=== PATIENT | female | born 1950 | race Hispanic/Latino ===

== ENCOUNTER → 2021-11-21 | Outpatient (CLI) | payer OTHER | END | disposition home or self-care (01) | LOC: RAH 11:41 | PROVIDERS: ATTEND Internal Medicine | DX: I70.201 Unspecified atherosclerosis of native arteries of extremities, right leg (principal); M79.604 Pain in right leg | CPT/HCPCS: 93926 ==

== ENCOUNTER → 2022-06-04 | Outpatient (CLI) | payer OTHER | END | disposition home or self-care (01) | LOC: RAH 13:15 | PROVIDERS: ATTEND Physician Assistant Surgical | DX: M79.661 Pain in right lower leg (principal); R60.0 Localized edema; M25.561 Pain in right knee; M17.11 Unilateral primary osteoarthritis, right knee; M16.11 Unilateral primary osteoarthritis, right hip | CPT/HCPCS: 93971 ==

== ENCOUNTER → 2022-09-26 | Outpatient (CLI) | payer OTHER | END | disposition home or self-care (01) | LOC: SHCH 08:35 | PROVIDERS: ATTEND Student in an Organized Health Care Education/Training Program | DX: R60.0 Localized edema (principal); R06.02 Shortness of breath | CPT/HCPCS: 93306; 93970 ==

== ENCOUNTER → 2023-05-31 | Outpatient (CLI) | payer OTHER ==
[2023-05-31 16:29] LABS: BASOPHILS # (AUTO) 0.03 K/uL (0.00-0.20); BASOPHILS % (AUTO) 0.4 % (0.0-5.0); EOSINOPHILS # (AUTO) 0.08 K/uL (0.00-0.70); HEMATOCRIT 40.5 % (36-48); IMMATURE GRANULOCYTE ABSOLUTE 0.02 K/uL (0-1); LYMPHOCYTES # (AUTO) 2.1 K/uL (1.0-4.8); LYMPHOCYTES % (AUTO) 26.3 % (21.0-51.0); MEAN CORPUSCULAR HGB CONC 32.8 g/dL (32.0-36.0); MEAN CORPUSCULAR VOLUME 88.2 fL (79-99); MONOCYTES # (AUTO) 0.4 K/uL (0.1-1.0); MONOCYTES % (AUTO) 5.2 % (3.0-13.0); NEUTROPHILS # (AUTO) 5.4 K/uL (1.8-7.7); NEUTROPHILS % (AUTO) 66.9 % (40.0-77.0); PLATELET COUNT (AUTO) 163 K/uL (130-400); RED BLOOD CELL COUNT(AUTO) 4.59 MIL/uL (4.00-5.50); WHITE BLOOD COUNT (AUTO) 8.1 K/uL (4.8-10.8)
[2023-05-31 16:44] LABS: HEMOGLOBIN A1C 5.7 % (4.0-6.0)
[2023-05-31 16:58] LABS: ALBUMIN 3.8 g/dL (3.5-5.0); BILIRUBIN,TOTAL 0.5 mg/dL (0.2-1.0); CREATININE 0.6 mg/dL (0.5-1.0); POTASSIUM 4.1 mmol/L (3.5-5.1); THYROID STIMULATING HORMONE 2.9 uIU/mL (0.36-3.74)
== END | disposition home or self-care (01) ==
LOC: LAB 12:50
PROVIDERS: ATTEND Student in an Organized Health Care Education/Training Program
DX: R60.9 Edema, unspecified (principal); E78.5 Hyperlipidemia, unspecified; R53.83 Other fatigue; Z79.899 Other long term (current) drug therapy
CPT/HCPCS: 36415; 80053; 80061; 83036; 84443; 85025

== ENCOUNTER → 2023-07-19 | Outpatient (CLI) | payer OTHER ==
[2023-07-19 16:29] LABS: ALBUMIN 3.8 g/dL (3.5-5.0); BILIRUBIN,TOTAL 0.4 mg/dL (0.2-1.0); CREATININE 0.8 mg/dL (0.5-1.0); POTASSIUM 3.4 mmol/L (3.5-5.1); TOTAL PROTEIN, SERUM 6.9 g/dL (6.0-8.3)
== END | disposition home or self-care (01) ==
LOC: LAB 12:46
PROVIDERS: ATTEND Student in an Organized Health Care Education/Training Program
DX: E78.5 Hyperlipidemia, unspecified (principal); R60.9 Edema, unspecified
CPT/HCPCS: 36415; 80053; 80061

== ENCOUNTER → 2023-07-21 | Outpatient (CLI) | payer OTHER ==
[~2023-07-21] MED LIST: IOHEXOL 350 MG/ML 100ML INFUS..BTL IV ONE; MELO-108 PO
== END | disposition home or self-care (01) ==
LOC: RAH 08:21
PROVIDERS: ATTEND Student in an Organized Health Care Education/Training Program
DX: R07.9 Chest pain, unspecified (principal)
CPT/HCPCS: 75574; Q9967

== ENCOUNTER 2023-07-23 14:11 | Emergency (ER) | payer OTHER, MEDICARE ==
[~2023-07-23] VITALS: Ht 160 cm; Wt 115.7 kg
[2023-07-23] MEDS ORDERED: MELO-108 PO (17:15)
[2023-07-23 17:37] VITALS: BP 121/78; PULSE 74; RESP 16; O2SAT 99
== END 2023-07-23 17:38 | disposition home or self-care (01) ==
LOC: EDH 14:11
DX: M54.59 Other low back pain (principal); M79.18 Myalgia, other site; R07.81 Pleurodynia; Z88.0 Allergy status to penicillin; W18.39XA Other fall on same level, initial encounter; Y93.89 Activity, other specified; Y92.89 Other specified places as the place of occurrence of the external cause; Y99.8 Other external cause status
CPT/HCPCS: 70450; 71250; 72125; 74176; 93971

== ENCOUNTER 2023-09-25 11:21 | Emergency (ER) | payer OTHER, MEDICARE ==
[~2023-09-25] VITALS: Ht 160 cm; Wt 108.9 kg
[~2023-09-25 11:21] MED LIST changes: -IOHEXOL 350 MG/ML 100ML INFUS..BTL IV ONE
[2023-09-25] MEDS: KETOROLAC 15MG/ML VIAL (15MG/ML) IM ONE (11:48)
[2023-09-25 13:58] VITALS: BP 136/70; PULSE 64; RESP 17; O2SAT 98
== END 2023-09-25 14:02 | disposition home or self-care (01) ==
LOC: EDH 11:21
DX: S93.401A Sprain of unspecified ligament of right ankle, initial encounter (principal); S00.83XA Contusion of other part of head, initial encounter; M25.561 Pain in right knee; Y92.89 Other specified places as the place of occurrence of the external cause; I10 Essential (primary) hypertension; Z88.0 Allergy status to penicillin; Z79.899 Other long term (current) drug therapy; Z90.710 Acquired absence of both cervix and uterus; Z96.661 Presence of right artificial ankle joint; W01.198A Fall on same level from slipping, tripping and stumbling with subsequent striking against other object, initial encounter; Y93.89 Activity, other specified; Y99.8 Other external cause status; M25.551 Pain in right hip
CPT/HCPCS: 70450; 70486; 72125; 73503; 73562; 73610; 96372; J1885

== ENCOUNTER → 2023-10-01 | Outpatient (CLI) | payer MEDICARE, OTHER | END | disposition home or self-care (01) | LOC: RAH 16:05 | PROVIDERS: ATTEND Internal Medicine | DX: M25.531 Pain in right wrist (principal); W19.XXXA Unspecified fall, initial encounter; Y93.89 Activity, other specified; Y92.89 Other specified places as the place of occurrence of the external cause; Y99.8 Other external cause status | CPT/HCPCS: 73110 ==

== ENCOUNTER → 2024-01-26 | Outpatient (CLI) | payer OTHER ==
[2024-01-26 10:33] LABS: BASOPHILS # (AUTO) 0.04 K/uL (0.00-0.20); BASOPHILS % (AUTO) 0.6 % (0.0-5.0); EOSINOPHILS # (AUTO) 0.14 K/uL (0.00-0.70); EOSINOPHILS % (AUTO) 2.1 % (0.0-8.0); HEMATOCRIT 39.9 % (36-48); IMMATURE GRANULOCYTE ABSOLUTE 0.01 K/uL (0-1); LYMPHOCYTES % (AUTO) 30.2 % (21.0-51.0); MEAN CORPUSCULAR HEMOGLOBIN 29.5 pg (27.0-33.0); MEAN CORPUSCULAR HGB CONC 32.6 g/dL (32.0-36.0); MEAN CORPUSCULAR VOLUME 90.5 fL (79-99); MONOCYTES # (AUTO) 0.4 K/uL (0.1-1.0); MONOCYTES % (AUTO) 6.4 % (3.0-13.0); NEUTROPHILS # (AUTO) 4.1 K/uL (1.8-7.7); NEUTROPHILS % (AUTO) 60.6 % (40.0-77.0); PLATELET COUNT (AUTO) 153 K/uL (130-400); RED BLOOD CELL COUNT(AUTO) 4.41 MIL/uL (4.00-5.50); RED CELL DISTRIBUTION WIDTH 13.3 % (11.0-15.5); WHITE BLOOD COUNT (AUTO) 6.8 K/uL (4.8-10.8)
[2024-01-26 10:54] LABS: ALBUMIN 3.6 g/dL (3.5-5.0); BILIRUBIN,TOTAL 0.3 mg/dL (0.2-1.0); CREATININE 0.6 mg/dL (0.5-1.0); POTASSIUM 3.6 mmol/L (3.5-5.1); TOTAL PROTEIN, SERUM 6.4 g/dL (6.0-8.3)
== END | disposition home or self-care (01) ==
LOC: LAB 09:26
PROVIDERS: ATTEND Internal Medicine
DX: N18.2 Chronic kidney disease, stage 2 (mild) (principal)
CPT/HCPCS: 36415; 80053; 85025

== ENCOUNTER → 2024-03-16 | Outpatient (CLI) | payer OTHER, MEDICARE ==
--- NOTE | 2024-03-16 12:39 | HMCIMG ---
US SOFT TISSUE UPPER BACK REASON: LOCALIZED SWELLING, MASS AND LUMP. COMPARISON: None TECHNIQUE: Left upper back ultrasound study was performed. FINDINGS: Over the region of interest, no evidence of hypoechoic mass or cystic lesion is seen. IMPRESSION: Acute finding.
== END | disposition home or self-care (01) ==
LOC: RAH 10:51
PROVIDERS: ATTEND Internal Medicine
DX: R22.2 Localized swelling, mass and lump, trunk (principal)
CPT/HCPCS: 76604

== ENCOUNTER → 2024-10-13 | Outpatient (CLI) | payer OTHER, MEDICARE ==
--- NOTE | 2024-10-14 09:34 | HMCIMG ---
EXAM: CR left Knee, 3 views. CLINICAL HISTORY: Pain in the left knee. COMPARISON: None provided. FINDINGS: Mild osteopenia. Post total knee replacement status. No evidence of periprosthetic lucency or hardware failure. No acute fracture or aggressive appearing osseous lesion. Joint spaces are within normal limits. Mild soft tissue edema around the knee joint. IMPRESSION: Mild osteopenia. Post total knee replacement status. No evidence of periprosthetic lucency or hardware failure. /[place]
== END | disposition home or self-care (01) ==
LOC: RAH 14:39
PROVIDERS: ATTEND Internal Medicine
DX: M85.88 Other specified disorders of bone density and structure, other site (principal); M25.562 Pain in left knee; G89.29 Other chronic pain; R60.0 Localized edema; Z96.652 Presence of left artificial knee joint
CPT/HCPCS: 73562

== ENCOUNTER → 2024-12-07 | Outpatient (CLI) | payer OTHER, MEDICARE ==
[2024-12-07 10:49] LABS: ASPARTATE AMINOTRANSFERASE 12.0 U/L (10-37); CREATININE 0.7 mg/dL (0.5-1.0); GLOMERULAR FILTR. RATE CALC 90.0 mL/min (>90); GLUCOSE,RANDOM 83.0 mg/dL (70-105); SODIUM SERUM 140.0 mmol/L (136-145); TOTAL PROTEIN, SERUM 6.5 g/dL (6.0-8.3); UREA NITROGEN, BLOOD 15.0 mg/dL (7-18)
[2024-12-07 11:06] LABS: IMMATURE GRANULOCYTE ABSOLUTE 0.02 K/uL (0-1); NUCLEATED RED BLOOD CELLS 0.0 % (0.0-0.19); PLATELET COUNT (AUTO) 177 K/uL (130-400); RED BLOOD CELL COUNT(AUTO) 4.38 MIL/uL (4.00-5.50); RED CELL DISTRIBUTION WIDTH 13.4 % (11.0-15.5); WHITE BLOOD COUNT (AUTO) 7.3 K/uL (4.8-10.8)
== END | disposition home or self-care (01) ==
LOC: LAB 09:40
PROVIDERS: ATTEND Internal Medicine
DX: N18.2 Chronic kidney disease, stage 2 (mild) (principal)
CPT/HCPCS: 36415; 80053; 85025

== ENCOUNTER 2024-12-24 12:10 | Emergency (ER) | payer OTHER, MEDICARE ==
[~2024-12-24] VITALS: Ht 160 cm; Wt 93.7 kg
--- NOTE | 2024-12-24 12:59 | NUR ---
STERI STRIPS APPLIED TO BRIDGE OF NOSE, PT TOLERATED WELL
--- NOTE | 2024-12-24 13:20 | ERN ---
General Chief Complaint: Laceration/Avulsion Stated Complaint: NOSE BRIDGE LACERATION Time Seen by MD: 12:12 History of Present Illness Initial Comments 74-year-old female who presents for a fall. Yesterday she lost her balance and hit her nose. No loss of conscious. No repetitive questioning. Today she has a laceration along the bridge of her nose and a black eye in the right side. No vision changes. She has otherwise been in her normal state of health. No blood thinners. No head injury. She does report some upper neck discomfort. Allergies: Coded Allergies: Penicillins (Unverified Allergy, Unknown, 07/23/23) Home Meds Active Scripts Meloxicam (Meloxicam) 15 Mg Tablet, 15 MG PO DAILY PRN for PAIN for 10 Days, #10 TAB Prov:ISAK PERAZA DO 07/23/23 Past Medical History Past Medical History: Arthritis, Hypertension Past Surgical History: Other Surgical History Other: KNEE SX ROS Dictation CONSTITUTIONAL: No chills, no fever, no weakness, no diaphoresis, no malaise. HEAD/FACE: Nasal bone/nasal bridge trauma, black eye EENT: No eye pain, no blurred vision, no tearing, no double vision, no ear pain, no ear discharge, no nose pain, no nasal congestion, no throat pain, no throat swelling, no mouth pain. RESPIRATORY: No cough, no orthopnea, no SOB, no stridor, no wheezing. CARDIOVASCULAR: No chest pain, no edema, no palpitations, no syncope. GASTROINTESTINAL/ABDOMINAL: No abdominal pain, no constipation, no diarrhea, no nausea, no vomiting. GENITOURINARY: No abnormal discharge, no dysuria, no frequent urination, no hematuria. No complaints of pain in the genitals. MUSCULOSKELETAL: No back pain, no gout, no joint pain, no joint swelling, no muscle pain, no muscle stiffness, no neck pain. INTEGUMENTARY: No change in color, no change in hair/nails, no dryness, no lesion, no lumps, no rash. NEUROLOGICAL/PSYCH: No anxiety, not depressed, no emotional problem, no head ache, no numbness, no pre-existing deficit, no history of seizures, no tremors, no weakness. HEMATOLOGIC/LYMPHATIC: Not anemic, no history of blood clots, no apparent bleeding, no bruising, glands not swollen. All Systems Negative, Except as Noted. Physical Exam Physical Exam Dictation VITAL SIGNS: Reviewed. GENERAL APPEARANCE: Alert, oriented x3, no acute distress, obese. HEAD AND FACE: Non-traumatic. EYES: PERRL, pink conjunctivas, eyelid no trauma, anterior chamber clear. EARS: Pinnas intact and no signs of trauma or erythema. Ear canals clear and no discharge. TMs no erythema. NOSE: No discharge, no bleeding. OROPHARYNX: Mouth normal, teeth no caries, tongue pink. Pharynx clear, no erythema. Tonsils no exudates, no abscesses noted. Mucous membrane moist. NECK: Supple, non-tender, no thyromegaly, no masses, no JVD, no bruits. BREAST: Deferred. CHEST: No tenderness, no crepitus, no paradoxical movement, no retractions. LUNGS: Clear, well-ventilated, symmetric, no rales, no wheezing, no rhonchi, no stridor, good breath sounds bilaterally. HEART: Regular rate, regular rhythm, no murmur, no gallops. VASCULAR: No peripheral edema. ABDOMEN: Soft, positive bowel sounds, nondistended, no guarding, nontender, no rebound, no masses no hepatomegaly, no splenomegaly, no Ac's sign, no hernias. RECTAL: Deferred. GENITAL: Deferred. NEUROLOGICAL: Normal speech, gross motor function intact, gross sensory function intact. MUSCULOSKELETAL: Neck nontender, full range of motion, back nontender, full range of motion. EXTREMITIES: Nontender, full range of motion. SKIN: Color pink, dry, no turgor, no rash, no lacerations, no abrasions, no contusions. LYMPHATICS: Deferred. MDM CC: Face injury Historian: Patient Comorbidities: Advanced age, hypertension Limitations by social determinants of health: None Differential diagnosis: The nasal bone fracture, laceration, cervical spine injury, other Vital signs are stable Clinical exam black eye, DESTINEE, otherwise unremarkable Nasal bone x-ray and cervical spine x-ray are unremarkable CT cervical spine unremarkable The wound was repaired with Steri-Strips. No indication for advanced repair We will DC ED Course Orders Procedure Category Date Status Time Cerv Spine 2-3vws RAD 12/24/24 Taken 12:22 Nasal Bones Comp 3+Vws RAD 12/24/24 Taken 12:22 Ct Cervical Spine W/O CT 12/24/24 Taken Contrast 12:52 Vital Signs Date Time Temp Pulse Resp B/P (MAP) Pulse Ox O2 Delivery O2 Flow Rate FiO2 12/24/24 12:29 97.2 77 19 105/64 96 Room Air* 0 21 12/24/24 12:12 97.2 77 19 105/64 96 Room Air 0 DX & DISP Disposition: Discharge Departure Impression: Primary Impression: Fall at home Additional Impressions: Nasal laceration, Mass on back Condition: Stable Additional Instructions: Keep the Steri-Strips on your nose for 72 hours. Monitor for any signs of infection. I recommend that you apply ice to your nose for 20 minutes 3 times per day for the next 48 hours to reduce swelling. The cervical spine x-ray does show some degenerative changes/arthritis. Otherwise there are no acute fractures. The x-rays do not show any nasal bone fractures. Regarding the mass on your back, I recommend a surgical evaluation. As we discussed, it is likely benign, but you may benefit from further studies. I have given you a surgical referral. Please return to the emergency department as needed. Referrals: NEY ROLDAN MD (PCP) KRISTOPHER KIMBLE MD, RYAN E DO Dec 24, 2024 13:20
[2024-12-24 13:22] VITALS: BP 111/62; PULSE 72; RESP 19; TEMP 97.2; O2SAT 96
--- NOTE | 2024-12-24 13:44 | HMCIMG ---
EXAM: CR Cervical spine, 3 View. CLINICAL HISTORY: pain, fall COMPARISON: None provided. FINDINGS: BONES: No acute fracture or aggressive appearing osseous lesion. DISCS/DEGENERATIVE CHANGES: Moderate severe degenerative change of the spine. SOFT TISSUES: No prevertebral soft tissue swelling. The visualized lung apices are clear. IMPRESSION: 1. No acute osseous injury. 2. Moderate to severe cervical spondylosis. /[place]
--- NOTE | 2024-12-24 13:45 | HMCIMG ---
EXAM: CR Nasal Bones, 3 View. CLINICAL HISTORY: pain, fall COMPARISON: None provided. FINDINGS: BONES: No displaced nasal fracture detected. SINUSES: No air-fluid level. SOFT TISSUES: The soft tissues are unremarkable. IMPRESSION: 1. No displaced nasal fracture detected. 2. Radiographic sensitivity for nasal bone fractures is limited. /[place]
--- NOTE | 2024-12-24 13:45 | HMCIMG ---
EXAM: CT Cervical Spine Without IV contrast. CLINICAL HISTORY: fall, trauma TECHNIQUE: Axial computed tomography images of the cervical spine without intravenous contrast. Sagittal and coronal reformatted images were generated. COMPARISON: None provided. FINDINGS: ALIGNMENT: There is mild straightening of the cervical spine DEGENERATIVE CHANGES: No significant canal stenosis or neural foraminal narrowing evident. Cervical spondylosis is evident by marginal osteophytes at multiple levels and multilevel intervertebral disk space narrowing with endplate sclerosis, most prominent at C3/C4, C5/C6, and C6/C7 with posterior disk osteophyte complex and mild uncovertebral arthropathy. Mild atlanto-axial joint osteoarthritis. The bones are osteopenic. Chronic Schmoral nodule, superior end of the palate of T1 vertebra. SOFT TISSUES: The prevertebral soft tissues are within normal limits. BONES: No acute fracture or aggressive appearing osseous lesion. IMPRESSION: 1. No acute cervical spine fracture. 2. Cervical spondylosis, most prominent at C3-C4, C5-C6, and C6-C7. /[place]
== END 2024-12-24 13:23 | disposition home or self-care (01) ==
LOC: EDH 12:10
DX: S01.21XA Laceration without foreign body of nose, initial encounter (principal); M54.2 Cervicalgia; I10 Essential (primary) hypertension; M19.90 Unspecified osteoarthritis, unspecified site; Z88.0 Allergy status to penicillin; W01.10XA Fall on same level from slipping, tripping and stumbling with subsequent striking against unspecified object, initial encounter; Y93.89 Activity, other specified; Y92.098 Other place in other non-institutional residence as the place of occurrence of the external cause; Y99.8 Other external cause status
CPT/HCPCS: 70160; 72040; 72125; 99284